=== PATIENT | male | born 1980 | race Caucasian/White ===

== ENCOUNTER 2024-05-06 17:54 | Emergency (ER) | payer OTHER, SELFPAY ==
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
[2024-05-06 18:24] VITALS: BP 136/78; PULSE 116; RESP 16; TEMP 36.3; O2SAT 97; BMI 28.2
[2024-05-06] MEDS: Acetaminophen 325 MG TABLET 975 MG PO (19:03)
[2024-05-06] MEDS: Ibuprofen 600 MG TABLET PO (20:19)
== END 2024-05-06 22:55 | disposition home or self-care (01) ==
PROVIDERS: Emergency Provider Emergency Medicine
DX: S00.11XA Contusion of right eyelid and periocular area, initial encounter (principal); S60.222A Contusion of left hand, initial encounter; Y04.2XXA Assault by strike against or bumped into by another person, initial encounter; Y93.89 Activity, other specified; Y92.049 Unspecified place in boarding-house as the place of occurrence of the external cause; Y99.9 Unspecified external cause status
CPT/HCPCS: 70486; 73130; 99282; 99284